=== PATIENT | male | born 1990 | race Caucasian/White ===

== ENCOUNTER 2019-02-11 21:42 | Emergency (ER) | payer MEDICARE ==
--- NOTE | 2019-02-11 23:49 | ED ---
GI/ HPI - HPI Summary HPI Summary: A 28 y/o male accompanied by his Aunt presents to [facility] with a chief complaint of black stool since 02/09/19. This patient has not had abdominal pain, N/V or diarrhea. He claims that his stool has been formed. At triage he rated his pain as a 0/10 in severity. He has been using OTC Zantac since he was a child due to some reflux like symptoms. He had an endoscopy done and he reports that tests that were done came back negative. 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 Onset/Duration: Started Days Ago, Still Present Timing: Intermittent, Lasting Days Severity: Mild Current Severity: None Pain Intensity: 0 Location of Pain: None Pain Characteristics: Other: - none Associated Signs and Symptoms: Negative: Nausea, Vomiting, Fever Aggravating Factor(s): Nothing Alleviating Factor(s): Nothing - Allergy/Home Medications Allergies/Adverse Reactions: Allergies Allergy/AdvReac Type Severity Reaction Status Date / Time No Known Allergies Allergy Verified 02/11/19 21:45 PMH/Surg Hx/FS Hx/Imm Hx Sensory History: Denies: Hx Deafness EENT History: Denies: Hx Deafness - Immunization History Immunizations Up to Date: Yes Infectious Disease History: No Infectious Disease History: Denies: Traveled Outside the [place] in Last 30 Days - Family History Known Family History: Negative: Blood Disorder - Social History Alcohol Use: Rare Substance Use Type: Reports: None Smoking Status (MU): Never Smoked Tobacco Review of Systems Negative: Fever Positive: Other - positive: formed black stool. Negative: Abdominal Pain, Vomiting, Diarrhea, Nausea All Other Systems Reviewed And Are Negative: Yes Physical Exam - Summary Physical Exam Summary: Constitutional: Well-developed, Well-nourished, Alert. (-) Distressed Skin: Warm, Dry HENT: Normocephalic; Atraumatic Eyes: Conjunctiva normal Neck: Musculoskeletal ROM normal neck. (-) JVD, (-) Stridor, (-) Tracheal deviation Cardio: Rhythm regular, rate normal, Heart sounds normal; Intact distal pulses; The pedal pulses are 2+ and symmetric. Radial pulses are 2+ and symmetric. Pulmonary/Chest wall: Effort normal. (-) Respiratory distress, (-) Wheezes, (-) Rales Abd: Soft, scaphoid, (-) tenderness, (-) Distension, (-) Guarding, (-) Rebound Musculoskeletal: (-) Edema Neuro: Alert, Oriented x3 Psych: Mood and affect Normal rectal: black stool Triage Information Reviewed: Yes Vital Signs On Initial Exam: Initial Vitals Temp Pulse Resp BP Pulse Ox 99.1 F 98 16 141/93 100 02/11/19 21:44 02/11/19 21:44 02/11/19 21:44 02/11/19 21:44 02/11/19 21:44 Vital Signs Reviewed: Yes Diagnostics - Vital Signs Vital Signs Temp Pulse Resp BP Pulse Ox 02/11/19 23:22 89 99 02/11/19 23:20 96 132/89 99 02/11/19 21:44 99.1 F 98 16 141/93 100 - Laboratory Result Diagrams: 02/11/19 23:52 02/11/19 23:52 Lab Statement: Any lab studies that have been ordered have been reviewed, and results considered in the medical decision making process. GIGU Course/Dx - Course Course Of Treatment: A 28 y/o male accompanied by his Aunt presents to [facility] with a chief complaint of black stool since 02/09/19. The physical exam revealed that the abdomen was nontender and scaphoid. The rectal exam revealed black stool. Guaiac was negative. Bloodwork and chemistries obtained and are WNL. The patient may have dark stools from gastric reflux vs gastric ulcer disease. The patient will be discharged and follow up with his PCP. The patient is agreeable with this plan. - Diagnoses Provider Diagnoses: Dark stools Discharge - Sign-Out/Discharge Documenting (check all that apply): Patient Departure - DC Patient Received Moderate/Deep Sedation with Procedure: No - Discharge Plan Condition: Good Disposition: HOME Patient Education Materials: Peptic Ulcer (ED) Referrals: [facility] [[facility]] - Billing Disposition and Condition Condition: GOOD Disposition: Home - Attestation Statements Document Initiated by Scribe: Yes Documenting Scribe: Erasto Wolff Provider For Whom Scribe is Documenting (Include Credential): Maikol Ramon MD Scribe Attestation: Erasto Rivera scribed for Maikol Ramon MD on 02/12/19 at 0610. Scribe Documentation Reviewed: Yes Provider Attestation: The documentation as recorded by the scribe, Erasto Wolff accurately reflects the service I personally performed and the decisions made by me, Maikol Ramon MD Status of Scribe Document: Viewed
[2019-02-12 00:02] LABS: ABS Basophils 0.1 10^3/ul (0-0.2); ABS Eosinophils 0.2 10^3/ul (0-0.6); ABS Lymphocytes 2.5 10^3/ul (1.0-4.8); ABS Monocytes 0.6 10^3/ul (0-0.8); ABS Neutrophils 3.1 10^3/ul (1.5-7.7); Eosinophil % 2.6 %; Hematocrit 39 % (42-52); Hemoglobin 13.7 g/dL (14.0-18.0); Lymphocyte % 39.9 %; Mean Corpuscular HGB Conc 35 g/dL (31-36); Mean Corpuscular Hemoglobin 28 pg (27-31); Mean Corpuscular Volume 82 fL (80-94); Mean Platelet Volume 9.2 fL (7.4-10.4); Nucleated Red Blood Cells % 0.2; Platelet Count 176 10^3/uL (150-450); Red Cell Distribution Width 13 % (10-15); White Blood Count 6.4 10^3/uL (3.5-10.8)
[2019-02-12 00:15] LABS: Albumin 4.6 g/dL (3.2-5.2); BUN/Creatinine Ratio 14.6 (8-20); Calcium 9.6 mg/dL (8.6-10.3); EGFR African American 104.8 (>60); EGFR Non-African American 86.6 (>60); Globulin 2.3 g/dL (2-4); Total Bilirubin 0.4 mg/dL (0.2-1.0); Total Protein 6.9 g/dL (6.4-8.9)
[2019-02-12 00:54] LABS: Indirect Bilirubin 0.3 mg/dL (0.3-1.0)
[2019-02-12 01:17] VITALS: BP 123/70
== END 2019-02-12 01:17 | disposition home or self-care (01) ==
LOC: ED 21:42
DX: R19.5 Other fecal abnormalities (principal)
CPT/HCPCS: 36415; 80048; 80076; 82272; 83690; 85025; 99282